=== PATIENT | male | born 1955 | race Caucasian/White ===

== ENCOUNTER 2022-11-22 01:19 | Inpatient (IN) | payer OTHER ==
[2022-11-22] MEDS ORDERED: CLINDAMYCIN 600MG PREMIX IVPB 600 MG/50 ML BAG IVPB ONE (04:04)
[2022-11-22 05:08] LABS: INR 0.98 (0.83-1.09); PROTHROMBIN TIME (PATIENT) 11.4 SEC (9.7-13.0)
[2022-11-22 05:09] LABS: POTASSIUM 3.6 mmol/L (3.5-5.1)
[2022-11-22 05:11] LABS: ACTIVATED PTT 29.7 SECONDS (25.2-36.5); BLOOD UREA NITROGEN 5.6 mg/dL (7-18); CALCIUM 8.2 mg/dL (8.5-10.1)
[2022-11-22 05:14] LABS: CREATININE 0.7 mg/dL (0.55-1.3)
[2022-11-22 05:16] LABS: BILIRUBIN,TOTAL 0.6 mg/dL (0.2-1); TOT PROT 6.8 g/dl (6.4-8.2)
[2022-11-22 05:30] LABS: BASO % 0.7 % (0-2.0); EOS % 6.6 % (0-4.5); HEMOGLOBIN 11.3 GM/dL (11.7-16.9); LYMPH % 14.4 % (8-40); MCHC 32.2 g/dl (32.0-35.9); MEAN CELL VOLUME 83.8 fl (80-96); MEAN PLT VOLUME 7.6 fl (7.5-11.1); MONO % 16.2 % (3.8-10.2); NEUT % 62.1 % (42.8-82.8); PLATELET COUNT 258 10^3/uL (134-434); RBC 4.17 M/mm3 (4.00-5.60); RDW 19.3 % (11.9-15.9); WHITE BLOOD COUNT 4.1 K/mm3 (4.0-10.0)
[2022-11-22] MEDS ORDERED: ACETAMINOPHEN 500 MG TABLET (FP) PO PRN (07:22)
[2022-11-22] MEDS ORDERED: CEFAZOLIN SODIUM 2 GM in DEXTROSE 5%-WATER 100 ML IVPB SCH ×2 (07:30→15:30)
[2022-11-22 07:41] LABS: N-TERMINAL BNP 68.2 pg/ml (5-125)
[2022-11-22] MEDS ORDERED: FOLIC ACID 1 MG TABLET (FP) ONE (08:33)
[2022-11-22] MEDS ORDERED: THIAMINE HCL 100 MG TABLET (FP) ONE (08:33)
[2022-11-22] MEDS ORDERED: ENOXAPARIN NA (PORCINE) 40 MG/0.4 ML DISP.SYRIN SQ ONE (08:33)
[2022-11-22] MEDS: ENOXAPARIN NA (PORCINE) 40 MG/0.4 ML DISP.SYRIN SQ SCH (09:19)
[2022-11-22] MEDS: FOLIC ACID 1 MG TABLET (FP) PO SCH (09:19)
[2022-11-22] MEDS: THIAMINE HCL 100 MG TABLET (FP) PO SCH (09:19)
[2022-11-22 09:41] LABS: ERYTHROCYTE SEDIMENTATION RATE 28 mm/hr (0-20)
[2022-11-22] MEDS ORDERED: VANCOMYCIN PREMIX 1.5 GM 1,500 MG/300 ML BAG IVPB ONE (12:00)
[2022-11-22 14:55] VITALS: BMI 27.8
[2022-11-22] MEDS: VANCOMYCIN PREMIX 1.5 GM 1,500 MG/300 ML BAG IVPB SCH (22:17)
[2022-11-23] MEDS ORDERED: VANCOMYCIN HCL 1,500 MG in DEXTROSE 5%-WATER - 250 ML IVPB SCH
[2022-11-23 09:19] LABS: BASO % 0.8 % (0-2.0); EOS % 6.4 % (0-4.5); HEMATOCRIT 34.6 % (35.4-49); HEMOGLOBIN 11.5 GM/dL (11.7-16.9); LYMPH % 19.5 % (8-40); MCH 27.2 pg (25.7-33.7); MCHC 33.2 g/dl (32.0-35.9); MEAN CELL VOLUME 81.9 fl (80-96); MEAN PLT VOLUME 7.3 fl (7.5-11.1); MONO % 18.7 % (3.8-10.2); NEUT % 54.6 % (42.8-82.8); PLATELET COUNT 254 10^3/uL (134-434); RBC 4.22 M/mm3 (4.00-5.60); RDW 19.5 % (11.9-15.9); WHITE BLOOD COUNT 4.1 K/mm3 (4.0-10.0)
[2022-11-23 09:31] LABS: POTASSIUM 3.7 mmol/L (3.5-5.1)
[2022-11-23 09:40] LABS: BILIRUBIN,TOTAL 0.8 mg/dL (0.2-1); TOT PROT 6.6 g/dl (6.4-8.2)
[2022-11-23 09:43] LABS: ALBUMIN 2.9 g/dl (3.4-5.0); BLOOD UREA NITROGEN 5.9 mg/dL (7-18)
[2022-11-23 09:45] LABS: CALCIUM 8.1 mg/dL (8.5-10.1); PHOSPHOROUS 3.6 mg/dL (2.5-4.9)
[2022-11-23 09:46] LABS: CREATININE 0.8 mg/dL (0.55-1.3)
[2022-11-23] MEDS ORDERED: VANCOMYCIN PREMIX 1.5 GM 1,500 MG/300 ML BAG IVPB SCH (10:00)
[2022-11-23] MEDS: FOLIC ACID 1 MG TABLET (FP) PO SCH (10:10)
[2022-11-23] MEDS: MULTIVITAMINS THER W-MINERALS COMBO TABLET (FP) PO SCH (10:10)
[2022-11-23] MEDS: THIAMINE HCL 100 MG TABLET (FP) PO SCH (10:10)
[2022-11-23] MEDS: ENOXAPARIN NA (PORCINE) 40 MG/0.4 ML DISP.SYRIN SQ SCH (10:10)
[2022-11-23] MEDS: VANCOMYCIN PREMIX 1.5 GM 1,500 MG/300 ML BAG IVPB SCH (10:15)
[2022-11-23] MEDS: CEFAZOLIN 1 GM in DEXTROSE 5%-WATER - 50 ML IVPB SCH ×2 (10:17→18:03)
[2022-11-24] MEDS: CEFAZOLIN 1 GM in DEXTROSE 5%-WATER - 50 ML IVPB SCH ×3 (02:45→17:04)
[2022-11-24 08:17] LABS: BASO % 1.1 % (0-2.0); EOS % 2.6 % (0-4.5); HEMATOCRIT 38.3 % (35.4-49); HEMOGLOBIN 12.2 GM/dL (11.7-16.9); LYMPH % 12.3 % (8-40); MCH 26.7 pg (25.7-33.7); MCHC 31.8 g/dl (32.0-35.9); MEAN CELL VOLUME 84.1 fl (80-96); MEAN PLT VOLUME 7.9 fl (7.5-11.1); MONO % 15.5 % (3.8-10.2); NEUT % 68.5 % (42.8-82.8); PLATELET COUNT 284 10^3/uL (134-434); RBC 4.55 M/mm3 (4.00-5.60); RDW 19.3 % (11.9-15.9); WHITE BLOOD COUNT 4.5 K/mm3 (4.0-10.0)
[2022-11-24 08:25] LABS: POTASSIUM 3.5 mmol/L (3.5-5.1)
[2022-11-24 08:30] LABS: CALCIUM 8.9 mg/dL (8.5-10.1)
[2022-11-24 08:31] LABS: ALBUMIN 3.2 g/dl (3.4-5.0); BLOOD UREA NITROGEN 7.6 mg/dL (7-18)
[2022-11-24 08:34] LABS: CREATININE 0.8 mg/dL (0.55-1.3)
[2022-11-24 08:35] LABS: BILIRUBIN,TOTAL 0.4 mg/dL (0.2-1); TOT PROT 7.6 g/dl (6.4-8.2)
[2022-11-24] MEDS: THIAMINE HCL 100 MG TABLET (FP) PO SCH (09:46)
[2022-11-24] MEDS: ENOXAPARIN NA (PORCINE) 40 MG/0.4 ML DISP.SYRIN SQ SCH (09:46)
[2022-11-24] MEDS: MULTIVITAMINS THER W-MINERALS COMBO TABLET (FP) PO SCH (09:46)
[2022-11-24] MEDS: FOLIC ACID 1 MG TABLET (FP) PO SCH (09:46)
[2022-11-24] MEDS: MINERAL OIL/PET HY-PHL TOPICAL OINTMENT 454 GM JAR TP SCH (22:16)
[2022-11-25] MEDS: CEFAZOLIN 1 GM in DEXTROSE 5%-WATER - 50 ML IVPB SCH ×3 (02:06→18:05)
[2022-11-25 08:48] LABS: POTASSIUM 4.1 mmol/L (3.5-5.1)
[2022-11-25 08:52] LABS: BASO % 0.8 % (0-2.0); EOS % 4.9 % (0-4.5); HEMATOCRIT 34.6 % (35.4-49); HEMOGLOBIN 11.1 GM/dL (11.7-16.9); LYMPH % 20.7 % (8-40); MCH 27.1 pg (25.7-33.7); MCHC 32.1 g/dl (32.0-35.9); MEAN CELL VOLUME 84.6 fl (80-96); MEAN PLT VOLUME 7.4 fl (7.5-11.1); MONO % 19.4 % (3.8-10.2); NEUT % 54.2 % (42.8-82.8); PLATELET COUNT 266 10^3/uL (134-434); RBC 4.09 M/mm3 (4.00-5.60); RDW 19.8 % (11.9-15.9); WHITE BLOOD COUNT 4.3 K/mm3 (4.0-10.0)
[2022-11-25 08:56] LABS: CALCIUM 8.6 mg/dL (8.5-10.1)
[2022-11-25 08:57] LABS: ALBUMIN 2.8 g/dl (3.4-5.0); BLOOD UREA NITROGEN 8.3 mg/dL (7-18)
[2022-11-25 09:00] LABS: CREATININE 0.9 mg/dL (0.55-1.3)
[2022-11-25 09:01] LABS: BILIRUBIN,TOTAL 0.6 mg/dL (0.2-1); TOT PROT 6.6 g/dl (6.4-8.2)
[2022-11-25] MEDS: MINERAL OIL/PET HY-PHL TOPICAL OINTMENT 454 GM JAR TP SCH ×2 (10:00→21:55)
[2022-11-25] MEDS: ENOXAPARIN NA (PORCINE) 40 MG/0.4 ML DISP.SYRIN SQ SCH (10:01)
[2022-11-25] MEDS: THIAMINE HCL 100 MG TABLET (FP) PO SCH (10:02)
[2022-11-25] MEDS: MULTIVITAMINS THER W-MINERALS COMBO TABLET (FP) PO SCH (10:02)
[2022-11-25] MEDS: FOLIC ACID 1 MG TABLET (FP) PO SCH (10:02)
[2022-11-26] MEDS: CEPHALEXIN MONOHYDRATE 500 MG CAPSULE (UD) PO SCH ×2 (05:49→11:48)
[2022-11-26] MEDS: THIAMINE HCL 100 MG TABLET (FP) PO SCH (10:09)
[2022-11-26] MEDS: MULTIVITAMINS THER W-MINERALS COMBO TABLET (FP) PO SCH (10:09)
[2022-11-26] MEDS: ENOXAPARIN NA (PORCINE) 40 MG/0.4 ML DISP.SYRIN SQ SCH (10:09)
[2022-11-26] MEDS: MINERAL OIL/PET HY-PHL TOPICAL OINTMENT 454 GM JAR TP SCH (10:10)
[2022-11-26] MEDS: FOLIC ACID 1 MG TABLET (FP) PO SCH (10:10)
[2022-11-26 14:06] VITALS: BP 144/90; PULSE 75; RESP 20; TEMP 97.9
== END 2022-11-26 15:54 | disposition home health service (06) | DRG 603 ==
LOC: JER 01:19 → JERBED 05:04 → J7W 12:30 → JERBED 12:43 → J7W 13:35
PROVIDERS: ADMIT Internal Medicine; ATTEND Nurse Practitioner Acute Care
DX: L03.115 Cellulitis of right lower limb (principal); L03.116 Cellulitis of left lower limb; K70.10 Alcoholic hepatitis without ascites; G93.0 Cerebral cysts; I10 Essential (primary) hypertension; E78.5 Hyperlipidemia, unspecified; F39 Unspecified mood [affective] disorder; R74.01 Elevation of levels of liver transaminase levels
CPT/HCPCS: 36415; 71045-TC-FY; 73610-TC-LT-FY; 73630-TC-LT; 80053; 83735; 83880; 84100; 85025; 85610; 85651; 85730; 86140; 93005; 93010; 93970-TC; 99285-25